=== PATIENT | female | born 1980 | race Caucasian/White ===

== ENCOUNTER 2017-08-19 18:07 | Emergency (ER) | payer OTHER, BC ==
[~2017-08-19] VITALS: Ht 170.2 cm; Wt 118.2 kg
[~2017-08-19 18:07] MED LIST: CARAFATE1 GM PO; FLUOXETINE HCL20 MG PO; MACROBID100 MG PO; MIRENA52 MG IY; PRILOSEC20 MG PO; ULTRAM50 MG PO; ZOFRAN ODT4 MG PO
[2017-08-19] MEDS ORDERED: SKELAXIN800 MG PO (20:30)
[2017-08-19] MEDS ORDERED: MOTRIN600 MG PO (20:30)
[2017-08-19] MEDS ORDERED: TRAMADOL HCL50 MG PO (20:32)
[2017-08-19 20:41] VITALS: BP 148/98
== END 2017-08-19 20:40 | disposition home or self-care (01) ==
LOC: EME 18:07
DX: S13.9XXA Sprain of joints and ligaments of unspecified parts of neck, initial encounter (principal); R51 Headache; V49.40XA Driver injured in collision with unspecified motor vehicles in traffic accident, initial encounter; Y92.414 Local residential or business street as the place of occurrence of the external cause; Z88.0 Allergy status to penicillin
CPT/HCPCS: 71046; 72050; 99281; 99284